=== PATIENT | female | born 1985 | race Caucasian/White ===

== ENCOUNTER → 2024-07-21 14:30 | Outpatient (REF) | payer OTHER, SELFPAY ==
[2024-07-28 04:31] LABS: HPV, High Risk Not Detected; HPV, High Risk Source Anal
== END ==
LOC: CLAB 14:30
PROVIDERS: ATTENDING PHYSICIAN Physician Assistant
DX: Z86.19 Personal history of other infectious and parasitic diseases (principal)
CPT/HCPCS: 87624; 88112